=== PATIENT | male | born 1970 | race African-American/Black ===

== ENCOUNTER 2019-05-02 07:11 | Emergency (ER) | payer OTHER ==
[~2019-05-02] VITALS: Ht 188 cm; Wt 83.9 kg
[2019-05-02] MEDS ORDERED: SENNA-DOCUSATE1 EAC1 PO (09:13)
[2019-05-02] MEDS ORDERED: NORFLEX100 MG PO (09:13)
[2019-05-02] MEDS ORDERED: IBUPROFEN 600600 M1 PO (09:13)
[2019-05-02] MEDS ORDERED: NORCO 5-325 TA1 EAC1 PO (09:13)
[2019-05-02 09:23] VITALS: BP 140/88
== END 2019-05-02 09:24 | disposition home or self-care (01) ==
LOC: ER 07:11
DX: S16.1XXA Strain of muscle, fascia and tendon at neck level, initial encounter (principal); S29.012A Strain of muscle and tendon of back wall of thorax, initial encounter; V49.88XA Car occupant (driver) (passenger) injured in other specified transport accidents, initial encounter; Y93.89 Activity, other specified; Y92.413 State road as the place of occurrence of the external cause; Y99.9 Unspecified external cause status